=== PATIENT | male | born 1995 | race Caucasian/White ===

== ENCOUNTER 2018-02-03 13:37 | Emergency (ER) | payer OTHER ==
[~2018-02-03] VITALS: Ht 160 cm; Wt 65.8 kg
[~2018-02-03 13:37] MED LIST: AMOXICILLIN500 M2 PO; DAYTRANA10 MG/9 HR TD; ZITHROMAX100 MG/51 PO
[2018-02-03] MEDS ORDERED: LIDEX 0.05% CRE15 GM T (14:25)
[2018-02-03] MEDS ORDERED: SEPTDS PO (14:25)
== END 2018-02-03 14:58 | disposition home or self-care (01) ==
LOC: ED 13:37
DX: L03.311 Cellulitis of abdominal wall (principal); Z88.8 Allergy status to other drugs, medicaments and biological substances

== ENCOUNTER 2018-05-19 19:52 | Emergency (ER) | payer OTHER ==
[~2018-05-19] VITALS: Ht 165.1 cm; Wt 61.2 kg
[~2018-05-19 19:52] MED LIST changes: +LIDEX 0.05% CRE15 GM T; +SEPTDS PO
[2018-05-19] MEDS ORDERED: CLINDAMYCIN150 MG PO (20:12)
[2018-05-19] MEDS ORDERED: Motrin,Rufen800 MG PO (20:12)
== END 2018-05-19 20:50 | disposition home or self-care (01) ==
LOC: ED 19:52
DX: K04.01 Reversible pulpitis (principal); K02.9 Dental caries, unspecified; Z79.899 Other long term (current) drug therapy

== ENCOUNTER 2018-08-18 | Emergency (ER) | payer OTHER ==
[~2018-08-18] MED LIST changes: +CLINDAMYCIN150 MG PO; +Motrin,Rufen800 MG PO
[2018-08-18] MEDS ORDERED: ZOFRAN4 MG PO (14:54)
== END 2018-08-18 16:09 | disposition home or self-care (01) ==
DX: R11.2 Nausea with vomiting, unspecified (principal); R10.9 Unspecified abdominal pain; F17.200 Nicotine dependence, unspecified, uncomplicated

== ENCOUNTER → 2021-05-12 | Outpatient (CLI) | payer OTHER ==
[~2021-05-12] MED LIST changes: +ZOFRAN4 MG PO
== END | disposition home or self-care (01) ==
LOC: COVID19 16:06
PROVIDERS: ATTEND Internal Medicine
DX: U07.1 COVID-19 (principal)

== ENCOUNTER 2021-11-20 23:33 | Emergency (ER) | payer OTHER ==
[~2021-11-20] VITALS: Ht 165.1 cm; Wt 61.2 kg
== END 2021-11-21 01:21 | disposition home or self-care (01) ==
LOC: ED 23:33
DX: R11.2 Nausea with vomiting, unspecified (principal); R10.9 Unspecified abdominal pain

== ENCOUNTER 2022-07-09 20:47 | Emergency (ER) | payer OTHER ==
[~2022-07-09] VITALS: Ht 1767 cm; Wt 61.2 kg
[2022-07-09] MEDS ORDERED: PENICILLIN VK500 MG PO (21:11)
== END 2022-07-09 21:15 | disposition home or self-care (01) ==
LOC: ED 20:47
DX: K02.9 Dental caries, unspecified (principal)

== ENCOUNTER 2022-11-14 00:46 | Emergency (ER) | payer OTHER ==
[~2022-11-14] VITALS: Ht 165.1 cm; Wt 61.2 kg
[~2022-11-14 00:46] MED LIST changes: +PENICILLIN VK500 MG PO
[2022-11-14 02:03] LABS: BASO % 0.3 % (0.0-1.0); EOS # 0.1 10*3/uL (0.0-0.4); EOS % 0.7 % (1.0-4.0); HEMATOCRIT 44.4 % (42.0-52.0); LYMPH # 0.8 10*3/uL (1.3-4.4); LYMPH % 6.4 % (27.0-41.0); MEAN CELL VOLUME 87.9 fl (80.0-94.0); MEAN CORPUSCULAR HGB 30.1 pg (27.0-31.0); MEAN CORPUSCULAR HGB CONC 34.2 g/dl (33.0-37.0); MEAN PLATELET VOLUME 10.2 fl (9.6-12.3); MONO # 0.8 10*3/uL (0.1-1.0); MONO % 6.1 % (3.0-9.0); NEUT # 11.1 10*3/uL (2.3-7.9); NEUT % 86.1 % (47.0-73.0); PLATELET COUNT AUTOMATED 224 10*3/uL (130-400); RED BLOOD COUNT 5.05 10*6/uL (4.50-5.90); RED CELL DISTRI WIDTH 12.6 % (0-14.5); WHITE BLOOD COUNT 12.9 10*3/uL (4.8-10.8)
[2022-11-14 02:23] LABS: ALKALINE PHOSPHATASE 73 U/L (46-116); BUN 10 mg/dl (9-23); CHLORIDE 104 mmol/L (98-107); LIPASE 29 U/L (12-53); POTASSIUM 3.8 mmol/L (3.4-5.1); SGPT/ALT 11 U/L (10-49); TOTAL PROTEIN 7.3 gm/dL (6.0-8.0)
[2022-11-14] MEDS ORDERED: ONDANSETRON4 MG SL (02:35)
== END 2022-11-14 02:40 | disposition home or self-care (01) ==
LOC: ED 00:46
PROVIDERS: Emergency Medicine
DX: R11.2 Nausea with vomiting, unspecified (principal); R10.9 Unspecified abdominal pain; Z87.891 Personal history of nicotine dependence

== ENCOUNTER 2023-03-21 22:17 | Emergency (ER) | payer OTHER ==
[~2023-03-21] VITALS: Ht 165.1 cm; Wt 63.5 kg
[~2023-03-21 22:17] MED LIST changes: +ONDANSETRON4 MG SL
[2023-03-21] MEDS ORDERED: PENICILLIN-VK500 MG PO (23:02)
== END 2023-03-21 23:21 | disposition home or self-care (01) ==
LOC: ED 22:17
DX: K04.7 Periapical abscess without sinus (principal)

== ENCOUNTER 2023-09-01 09:08 | Emergency (ER) | payer OTHER ==
[~2023-09-01] VITALS: Ht 170.1 cm; Wt 63.5 kg
[~2023-09-01 09:08] MED LIST changes: +PENICILLIN-VK500 MG PO
[2023-09-01] MEDS ORDERED: FLONASE ALLERG9.9 ML NAS (10:49)
== END 2023-09-01 10:56 | disposition home or self-care (01) ==
LOC: ED 09:08
DX: J06.9 Acute upper respiratory infection, unspecified (principal); F90.9 Attention-deficit hyperactivity disorder, unspecified type; Z20.822 Contact with and (suspected) exposure to COVID-19

== ENCOUNTER 2025-07-21 15:31 | Emergency (ER) | payer OTHER ==
[~2025-07-21 15:31] MED LIST changes: +FLONASE ALLERG9.9 ML NAS
[2025-07-21] MEDS ORDERED: VIBRAMYCIN100 MG PO (16:05)
== END 2025-07-21 16:11 | disposition home or self-care (01) ==
LOC: ED 15:31
DX: S20.362A Insect bite (nonvenomous) of left front wall of thorax, initial encounter (principal); F90.9 Attention-deficit hyperactivity disorder, unspecified type; W57.XXXA Bitten or stung by nonvenomous insect and other nonvenomous arthropods, initial encounter; Y93.89 Activity, other specified; Y92.89 Other specified places as the place of occurrence of the external cause; Y99.8 Other external cause status